=== PATIENT | male | born 1970 | race Caucasian/White ===

== ENCOUNTER 2021-05-22 16:12 | Outpatient (REF) | payer MEDICARE, SELFPAY ==
[2021-05-22 21:32] LABS: ALT 28 U/L (16-63); AST 15 U/L (15-37); Albumin 3.8 g/dL (3.4-5.0); Alkaline Phosphatase 93 U/L (46-116); Anion Gap 8.9 mmol/L (3-11); BUN 21 mg/dL (7-18); Bilirubin, Total 0.2 mg/dL (0.2-1.0); CO2 28.1 mmol/L (21.0-32.0); CREATININE 1.2 mg/dL (0.70-1.30); Calculated LDL 98 mg/dL (<100); Chloride 106 mmol/L (98-107); Cholesterol 198 mg/dL (<200); Glucose 139 mg/dL (74-106); HDL Cholesterol 28 mg/dL (40-60); Potassium 4.5 mmol/L (3.5-5.1); Sodium 143 mmol/L (136-145); Total Protein 6.8 g/dL (6.4-8.2); Triglyceride 363 mg/dL (<150)
[2021-05-24 09:24] LABS: Hepatitis C Ab w Rflx HCV PCR Negative (Negative)
[2021-05-24 09:42] LABS: HIV-1/2 Ag & Ab Screen Negative (Negative)
== END 2021-05-22 16:13 | disposition home or self-care (01) ==
LOC: NCHCN 16:12
PROVIDERS: Visit Provider Nurse Practitioner Family
DX: Z11.4 Encounter for screening for human immunodeficiency virus [HIV] (principal); Z13.220 Encounter for screening for lipoid disorders; Z11.59 Encounter for screening for other viral diseases; I10 Essential (primary) hypertension
CPT/HCPCS: 80053; 80061; 86803; 87389

== ENCOUNTER 2021-05-31 15:02 | Outpatient (REF) | payer MEDICARE, SELFPAY ==
[2021-05-31 20:54] LABS: BUN 13 mg/dL (7-18); CREATININE 1.1 mg/dL (0.70-1.30); Calcium 9.9 mg/dL (8.5-10.1); Chloride 101 mmol/L (98-107); Glucose 152 mg/dL (74-106); Potassium 4.5 mmol/L (3.5-5.1); Sodium 137 mmol/L (136-145)
== END 2021-05-31 15:03 | disposition home or self-care (01) ==
LOC: NCHCN 15:02
PROVIDERS: Visit Provider Nurse Practitioner Family
DX: I10 Essential (primary) hypertension (principal)
CPT/HCPCS: 80048

== ENCOUNTER 2021-12-10 16:01 | Outpatient (REF) | payer MEDICARE, SELFPAY ==
[2021-12-10 21:23] LABS: Anion Gap 11.6 mmol/L (3-11); BUN 13 mg/dL (7-18); CO2 24.4 mmol/L (21.0-32.0); CREATININE 1.2 mg/dL (0.70-1.30); Calcium 8.9 mg/dL (8.5-10.1); Chloride 106 mmol/L (98-107); Glucose 111 mg/dL (74-106); Potassium 4.3 mmol/L (3.5-5.1); Sodium 142 mmol/L (136-145)
== END 2021-12-10 16:02 | disposition home or self-care (01) ==
LOC: NCHCN 16:01
PROVIDERS: PCP Nurse Practitioner Family; Visit Provider Nurse Practitioner Family
DX: I10 Essential (primary) hypertension (principal)
CPT/HCPCS: 80048

== ENCOUNTER 2023-03-10 17:29 | Outpatient (REF) | payer MEDICARE, SELFPAY ==
[2023-03-10 21:20] LABS: ALT 19 U/L (16-63); AST 13 U/L (15-37); Albumin 3.8 g/dL (3.4-5.0); Alkaline Phosphatase 89 U/L (46-116); BUN 11 mg/dL (7-18); Bilirubin, Total 0.3 mg/dL (0.2-1.0); CREATININE 1.2 mg/dL (0.70-1.30); Calcium 8.9 mg/dL (8.5-10.1); Calculated LDL 115 mg/dL (<100); Chloride 105 mmol/L (98-107); Cholesterol 163 mg/dL (<200); Estimated GFR 72.76 (mL/min/1.73m2); Glucose 116 mg/dL (74-106); HDL Cholesterol 37 mg/dL (40-60); Potassium 4.2 mmol/L (3.5-5.1); Sodium 140 mmol/L (136-145); Total Protein 7.2 g/dL (6.4-8.2); Triglyceride 57 mg/dL (<150)
== END 2023-03-10 17:30 | disposition home or self-care (01) ==
LOC: NCHCN 17:29
PROVIDERS: PCP Nurse Practitioner Family; Visit Provider Nurse Practitioner Family
DX: I10 Essential (primary) hypertension (principal)
CPT/HCPCS: 80053; 80061

== ENCOUNTER 2023-08-26 18:39 | Outpatient (REF) | payer MEDICARE, SELFPAY ==
[2023-08-26 16:42] LABS: Calculated LDL 101 mg/dL (<100); Cholesterol 154 mg/dL (<200); HDL Cholesterol 33 mg/dL (40-60); Triglyceride 100 mg/dL (<150)
[2023-08-26 19:10] LABS: Abs Immature Grans 0.04 10^3/uL (0.0-0.06); Absolute Basophil Count 0.07 10^3/uL (0.0-0.2); Absolute Eosinophil Count 0.19 10^3/uL (0.0-0.7); Absolute Lymphocyte Count 2.89 10^3/uL (1.2-3.4); Absolute Monocyte Count 0.74 10^3/uL (0.1-0.8); Absolute Neutrophil Count 6.51 10^3/uL (1.2-6.7); Basophils % 0.7; Eosinophils % 1.8; HGB 17.4 g/dL (13.5-17.5); Immature Grans % 0.4; Lymphocytes % 27.7; MCH 30.3 pg (27.0-33.0); MCHC 33.5 % (32.0-36.0); MCV 90 fL (80-95); MPV 10.1 fL (8.0-11.0); Monocytes % 7.1; Neutrophils % 62.3; Platelet Count 288 10^3/uL (130-400); RBC 5.75 10^6/uL (4.36-5.78); RDW 14.4 % (11.8-14.1); RDW-SD 47.6 fL; WBC 10.44 10^3/uL (4.4-10.8)
[2023-08-26 19:16] LABS: Anion Gap 8.5 mmol/L (3-11); BUN 10 mg/dL (7-18); CO2 25.5 mmol/L (21.0-32.0); CREATININE 1.2 mg/dL (0.70-1.30); Calcium 9.8 mg/dL (8.5-10.1); Chloride 104 mmol/L (98-107); Estimated GFR 72.31 (mL/min/1.73m2); Glucose 113 mg/dL (74-106); Sodium 138 mmol/L (136-145)
[2023-08-27 19:55] LABS: CRP, High Sensitivity 9.27 mg/L (See Note)
== END 2023-08-26 18:40 | disposition home or self-care (01) ==
LOC: NCHCN 18:39
PROVIDERS: Podiatrist Foot & Ankle Surgery; PCP Nurse Practitioner Family; Visit Provider Nurse Practitioner Family
DX: E78.5 Hyperlipidemia, unspecified (principal); M79.672 Pain in left foot; M79.89 Other specified soft tissue disorders
CPT/HCPCS: 80048; 80061; 86141; 85025

== ENCOUNTER 2024-03-09 18:27 | Outpatient (REF) | payer MEDICARE, SELFPAY ==
[2024-03-09 21:14] LABS: Abs Immature Grans 0.02 10^3/uL (0.0-0.06); Absolute Basophil Count 0.07 10^3/uL (0.0-0.2); Absolute Eosinophil Count 0.29 10^3/uL (0.0-0.7); Absolute Lymphocyte Count 2.45 10^3/uL (1.2-3.4); Absolute Monocyte Count 0.81 10^3/uL (0.1-0.8); Absolute Neutrophil Count 6.65 10^3/uL (1.2-6.7); Basophils % 0.7 %; Eosinophils % 2.8 %; HCT 42.9 % (40.0-50.0); HGB 14.1 g/dL (13.5-17.5); Immature Grans % 0.2 %; Lymphocytes % 23.8 %; MCH 31.1 pg (27.0-33.0); MCHC 32.9 % (32.0-36.0); MCV 95 fL (80-95); MPV 9.1 fL (8.0-11.0); Monocytes % 7.9 %; Neutrophils % 64.6 %; Platelet Count 536 10^3/uL (130-400); RBC 4.54 10^6/uL (4.36-5.78); RDW 14.6 % (11.8-14.1); RDW-SD 50.4 fL; WBC 10.29 10^3/uL (4.4-10.8)
[2024-03-09 21:39] LABS: ALT 60 U/L (16-63); AST 19 U/L (15-37); Albumin 3.5 g/dL (3.4-5.0); Alkaline Phosphatase 138 U/L (46-116); Anion Gap 8.5 mmol/L (3-11); BUN 16 mg/dL (7-18); Bilirubin, Total 0.4 mg/dL (0.2-1.0); CO2 29.5 mmol/L (21.0-32.0); CREATININE 1.2 mg/dL (0.70-1.30); Calcium 9.4 mg/dL (8.5-10.1); Chloride 106 mmol/L (98-107); Estimated GFR 72.31 (mL/min/1.73m2); Glucose 88 mg/dL (74-106); Potassium 4.7 mmol/L (3.5-5.1); Sodium 144 mmol/L (136-145); Total Protein 7.1 g/dL (6.4-8.2)
[2024-03-09 22:27] LABS: Calculated LDL 63 mg/dL (<100); Cholesterol 129 mg/dL (<200); HDL Cholesterol 39 mg/dL (40-60); Triglyceride 136 mg/dL (<150)
== END 2024-03-09 18:28 | disposition home or self-care (01) ==
LOC: NCHCN 18:27
PROVIDERS: PCP Nurse Practitioner Family; Visit Provider Nurse Practitioner Family
DX: I25.10 Atherosclerotic heart disease of native coronary artery without angina pectoris (principal)
CPT/HCPCS: 80053; 80061; 83690; 85025

== ENCOUNTER 2024-11-16 18:35 | Outpatient (REF) | payer MEDICARE, SELFPAY ==
[2024-11-16 21:05] LABS: BUN 16 mg/dL (7-18); CREATININE 1.2 mg/dL (0.70-1.30); Calcium 8.9 mg/dL (8.5-10.1); Chloride 108 mmol/L (98-107); Estimated GFR 71.86 (mL/min/1.73m2); Glucose 130 mg/dL (74-106); Potassium 4.3 mmol/L (3.5-5.1); Sodium 141 mmol/L (136-145)
== END 2024-11-16 18:36 | disposition home or self-care (01) ==
LOC: LBN 18:35
PROVIDERS: PCP Nurse Practitioner Family; Visit Provider Nurse Practitioner Family
DX: I50.9 Heart failure, unspecified (principal)
CPT/HCPCS: 80048

== ENCOUNTER 2025-05-16 16:52 | Outpatient (REF) | payer MEDICARE, SELFPAY ==
[2025-05-16 20:58] LABS: HCT 50.5 % (40.0-50.0); HGB 17.3 g/dL (13.5-17.5); MCH 30.8 pg (27.0-33.0); MCHC 34.3 % (32.0-36.0); MCV 90 fL (80-95); MPV 9.9 fL (8.0-11.0); Platelet Count 261 10^3/uL (130-400); RBC 5.61 10^6/uL (4.36-5.78); RDW 13.7 % (11.8-14.1); RDW-SD 45.3 fL; WBC 9.63 10^3/uL (4.4-10.8)
[2025-05-16 21:10] LABS: ALT 21 U/L (16-63); AST 11 U/L (15-37); Albumin 3.6 g/dL (3.4-5.0); Alkaline Phosphatase 93 U/L (46-116); Anion Gap 8.6 mmol/L (3-11); BUN 14 mg/dL (7-18); Bilirubin, Total 0.4 mg/dL (0.2-1.0); CO2 26.4 mmol/L (21.0-32.0); Calcium 9.1 mg/dL (8.5-10.1); Calculated LDL 89 mg/dL (<100); Chloride 105 mmol/L (98-107); Cholesterol 140 mg/dL (<200); Estimated GFR 79.28 (mL/min/1.73m2); Glucose 109 mg/dL (74-106); HDL Cholesterol 32 mg/dL (>or=40); Potassium 4.2 mmol/L (3.5-5.1); Sodium 140 mmol/L (136-145); Total Protein 7.0 g/dL (6.4-8.2); Triglyceride 98 mg/dL (<150)
[2025-05-16 21:19] LABS: Hemoglobin A1C 5.8 % (<5.7)
== END 2025-05-16 16:53 | disposition home or self-care (01) ==
LOC: NCHCN 16:52
PROVIDERS: PCP Nurse Practitioner Family; Visit Provider Nurse Practitioner Family
DX: E78.5 Hyperlipidemia, unspecified (principal); Z51.81 Encounter for therapeutic drug level monitoring; Z82.49 Family history of ischemic heart disease and other diseases of the circulatory system
CPT/HCPCS: 80053; 80061; 85027; 83036

== ENCOUNTER 2025-08-28 21:18 | Outpatient (REF) | payer MEDICARE, SELFPAY ==
[2025-08-28 22:10] LABS: Calculated LDL 132 mg/dL (<100); Cholesterol 196 mg/dL (<200); HDL Cholesterol 33 mg/dL (>or=40); Triglyceride 155 mg/dL (<150)
== END 2025-08-28 21:19 | disposition home or self-care (01) ==
LOC: NCHCN 21:18
PROVIDERS: PCP Nurse Practitioner Family; Visit Provider Nurse Practitioner Family
DX: E78.5 Hyperlipidemia, unspecified (principal)
CPT/HCPCS: 80061